=== PATIENT | female | born 1945 | race Caucasian/White ===

== ENCOUNTER 2017-08-13 23:35 | Inpatient (IN) | payer MEDICARE ==
[~2017-08-13] VITALS: Ht 152.4 cm; Wt 85.7 kg
[~2017-08-13 23:35] MED LIST: ALBUT2 CONTNEB; BECL8.7A5 IH; LACO100T2 PO; LEVE500T9 PO; LEVE750T4 PO; THYR90TA PO
--- NOTE | 2017-08-14 | NUR ---
71 YO FEMALE BB RA FROM HOME. PT IS ALERT X 3, C/O SOB. PT USED HER AT HOME INHALOR WITHOUT RELIEF. PT CALLED 911. 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 PT GOWNED, PLACED ON TUMBLER TENDER. WILL CONTINUE TO MONITOR
--- NOTE | 2017-08-14 00:06 | NUR ---
RADIOLOGY AT BEDSIDE FOR CXR
[2017-08-14 00:17] LABS: BASOPHILS % (AUTO) 0.3 % (0.0-2.0); EOSINOPHILS # (AUTO) 0.2 /CMM (0.0-0.7); EOSINOPHILS % (AUTO) 3.6 % (0.0-6.0); HEMATOCRIT 39 % (33-45); HEMOGLOBIN 13.3 g/dL (11.5-14.8); LYMPHOCYTES # (AUTO) 1.7 /CMM (0.8-4.8); LYMPHOCYTES % (AUTO) 26.3 % (20.0-44.0); MEAN CORPUSCULAR HEMOGLOBIN 31 PG (26.0-33.0); MEAN CORPUSCULAR HGB CONC 34 g/dl (31.0-36.0); MEAN CORPUSCULAR VOLUME 91 fL (82-100); MONOCYTES # (AUTO) 0.5 /CMM (0.1-1.30); MONOCYTES % (AUTO) 7.6 % (2.0-12.0); NEUTROPHILS % (AUTO) 62.2 % (43.0-81.0); PLATELET COUNT (AUTO) 184 /CMM (150-450); RED BLOOD CELL COUNT(AUTO) 4.33 MIL/uL (4.0-5.2); WHITE BLOOD COUNT (AUTO) 6.4 K/uL (4.3-11.0)
[2017-08-14 00:37] LABS: TROPONIN I 0.048 ng/mL (0.00-0.056)
[2017-08-14 00:47] LABS: CALCIUM, SERUM 8.6 mg/dL (8.5-10.1); CARBON DIOXIDE 27 mmol/L (21-32); CHLORIDE 103 mmol/L (98-107); GLUCOSE 170 mg/dL (74-106); SODIUM SERUM 141 mmol/L (136-145); UREA NITROGEN, BLOOD 18 mg/dL (7-18)
[2017-08-14 00:51] LABS: ALANINE AMINOTRANSFERASE 35 U/L (12-78); ALBUMIN 3.6 g/dL (3.4-5.0); ALKALINE PHOSPHATASE 87 U/L (46-116); ASPARTATE AMINOTRANSFERASE 16 U/L (15-37); B-TYPE NATRIURETIC PEPTIDE 713 PG/ML (0-125); BILIRUBIN,TOTAL 0.3 mg/dL (0.2-1.0); TOTAL PROTEIN, SERUM 7.3 g/dL (6.4-8.2)
--- NOTE | 2017-08-14 00:58 | NUR ---
TELE 310-2
[2017-08-14] MEDS ORDERED: CEFTRIAXONE 1GM BAG (ER ONLY) 1 GM/50 ML PIGGYBACK IV ONE (01:00)
[2017-08-14] MEDS ORDERED: AZITHROMYCIN 500 MG in IV D5W 250 ML IV ONE (01:00)
[2017-08-14] MEDS ORDERED: CEFTRIAXONE 1GM BAG (ER ONLY) 50 ML IV ONE (01:07)
[2017-08-14] MEDS ORDERED: AZITHROMYCIN 500 MG VIAL ONE (01:07)
--- NOTE | 2017-08-14 01:27 | NUR ---
TRANSPORTED PT TO TELE BED WITH EMT WITHOUT INCIDENT
--- NOTE | 2017-08-14 01:45 | NUR ---
tele/rn notes PATIENT IN BED, HOB ELEVATED ALERT, ORIENTEDX2 BUT FORGETFUL, ON OXYGEN VIOA NC AT 2L TO MAINTAIN AT 95%.SKIN INTACT AND DRY, RESPIRATIONS EVEN AN UNLABORED BUT DIMINISHED. iv SITE ON LEFT WRIST INFILTRATED. CAREGIVER AT BEDSIDE, INVENTORY RECONCILED. WILL REINSERT IV SITE. CALL LIGHTS WITHIN REACH, WILL MONITOR, MD ORDER AND RECONCILED.
[2017-08-14 02:00] VITALS: BP 130/69
[2017-08-14 02:08] VITALS: BP 130/69
[2017-08-14] MEDS ORDERED: IPRATROPIUM NEB FS 0.5 MG/2.5 ML AMPUL.NEB NEB PRN (02:30)
[2017-08-14] MEDS ORDERED: HYDROCODONE/APAP 5/325MG 1 EACH TABLET PO PRN (02:30)
[2017-08-14] MEDS ORDERED: IV NS 0.9% 1,000 ML IV PRN (02:30)
[2017-08-14] MEDS ORDERED: ALBUTEROL FS 2.5 MG/3 ML VIAL.NEB NEB PRN (02:30)
[2017-08-14] MEDS ORDERED: Z GUARD REMEDY 2 OZ OINT TP PRN (02:30)
[2017-08-14] MEDS ORDERED: MAGNESIUM HYDROXIDE 30 ML UDC PO PRN (02:30)
[2017-08-14] MEDS ORDERED: ONDANSETRON HCL/PF 4 MG/2 ML VIAL IVP PRN (02:30)
[2017-08-14] MEDS ORDERED: ACETAMINOPHEN 325 MG TABLET PO PRN (02:30)
[2017-08-14] MEDS ORDERED: ZOLPIDEM TARTRATE 5 MG TABLET PO PRN (02:30)
--- NOTE | 2017-08-14 02:53 | NUR ---
tele/rn notes RECEIVED LAB RESULT OF LACTIC ACID AT 2.5 LEVEL. TELE READING RESULT AT SR 76 WITH V PACING AND BORDERLINE FIRST DEGREE AV BLOCK PACING. WILL INFORM
--- NOTE | 2017-08-14 03:05 | NUR ---
TELE/RN NOTES MD CONTACTED AND MADE AWARE REGARDING LATEST RESULT O F LACTIC ACID. NO NEW ORDER.
[2017-08-14 04:00] VITALS: BP 112/66
[2017-08-14] MEDS ORDERED: METRONIDAZOLE 500MG/ NS 100ML 100 ML IV ONE (04:41)
[2017-08-14] MEDS ORDERED: METRONIDAZOLE 500MG/ NS 100ML 500 MG in PREMIX 1 EA IV SCH (05:00)
--- NOTE | 2017-08-14 06:35 | NUR ---
TELE/EN CLOSING NOTES PATIENT IN HOB ELEVATED, ALERT, ORIENTED X2, COOPERATIVE TO CARE. ON OXYGEN VIA NC AT 2 L. RESPIRATIONS EVEN AND UNLABORED. CALL LIGHTS WITHIN REACH. MONITORING FOR ANY CHANGES. IV ON LFA GAUGE 22, NO S/S OF INFILTRATION. ON IV FLUIDS NS AT 60 ML/HR, WILL ENDORSE TO AM RN FOR INDRA,
[2017-08-14 08:00] VITALS: BP 124/78
--- NOTE | 2017-08-14 08:20 | NUR ---
ms rn received on bed,awake,alert,oriented x2-3,not in any form of distress, respirations even and unlabored,no sob noted, caregiver at bedside.
[2017-08-14] MEDS ORDERED: methylPREDNISolone SOD SUCC 40 MG/ML VIAL IV SCH (09:00)
[2017-08-14] MEDS ORDERED: LEVETIRACETAM (250 MG) 250 MG TABLET PO SCH (09:00)
[2017-08-14] MEDS ORDERED: LACOSAMIDE 50 MG TABLET PO SCH (09:00)
--- NOTE | 2017-08-14 09:40 | NUR ---
ms otero breakfast served,due meds given,tolerated well.
--- NOTE | 2017-08-14 10:00 | NUR ---
ms rn was seen by dr. edgar, was able to talked w/ on the phone, awaiting for orders.
[2017-08-14 12:00] VITALS: BP 126/68
--- NOTE | 2017-08-14 13:00 | NUR ---
MS RN CAME AND WANTED TO BRING HIS HOME, TEXT DR. JIMENEZ W/ PLAN FOR CT SCAN/ AND PULMO CONSULT. PATIENT WENT FOR AMA. NOTIFIED.
[2017-08-15] MEDS ORDERED: CEFTRIAXONE 1 G in IV D5W 50 ML IV SCH (01:00)
== END 2017-08-14 13:45 | disposition left against medical advice (07) | DRG 198 ==
LOC: ER 23:37 → TELE 08-14 01:13
PROVIDERS: ADMIT Nurse Practitioner Acute Care; ATTEND Nurse Practitioner Acute Care
DX: J84.9 Interstitial pulmonary disease, unspecified (principal); N30.10 Interstitial cystitis (chronic) without hematuria; G40.909 Epilepsy, unspecified, not intractable, without status epilepticus; E78.5 Hyperlipidemia, unspecified; J45.909 Unspecified asthma, uncomplicated; Z79.899 Other long term (current) drug therapy; Z85.841 Personal history of malignant neoplasm of brain; Z86.73 Personal history of transient ischemic attack (TIA), and cerebral infarction without residual deficits; I10 Essential (primary) hypertension; M79.7 Fibromyalgia
CPT/HCPCS: 36415; 71010-TC; 80048-TC; 80076-TC; 83605-TC; 83880; 84484-TC; 85025-TC; 87040-TC; 87081-TC; A4216; A4606; J0456; J0696; J2920; J3490; J7030; J7060; Z7610